=== PATIENT | male | born 1945 | race Caucasian/White ===

== ENCOUNTER 2021-01-20 17:40 | Inpatient (IN) | payer MEDICARE, OTHER ==
[2021-01-20 18:28] LABS: #Lymphocytes 1.1 thou/uL (1.20-3.40); #Monocytes 0.9 thou/uL (0.11-0.59); %Basophils 0.3 % (0.0-1.0); %Eosinophils 0.2 % (0.0-10.0); %Lymphocytes 7.6 % (21.0-51.0); %Monocytes 5.7 % (0.0-10.0); %Neutrophils 86.3 % (42.0-75.0); Hemoglobin 14.8 g/dL (14.0-18.0); Mean Corpuscular HGB CONC 34.8 g/dL (32.0-36.0); Mean Corpuscular Hemoglobin 33.3 pg (27.0-31.0); Mean Corpuscular Volume 95.8 fL (78.0-98.0); Platelet Count 219 thou/uL (130-400); RBC Distribution Width 11.5 % (11.5-14.5); Red Blood Cell (RBC) Count 4.44 mill/uL (4.70-6.10)
[2021-01-20 18:48] LABS: ALT (SGPT) 23 U/L (8-55); AST (SGOT) 26 U/L (5-34); Albumin 3.9 g/dL (3.4-4.8); Alkaline Phosphatase 64 U/L (40-110); Anion Gap 15 mmol/L (10-20); BUN (Urea Nitrogen) 23 mg/dL (8.4-25.7); Bilirubin, Total 0.9 mg/dL (0.2-1.2); Calc. Creatinine Clearance 0 mL/min (70-130); Calcium 8.9 mg/dL (7.8-10.44); Carbon Dioxide 19 mmol/L (23-31); Chloride 107 mmol/L (98-107); Globulin 3.2 g/dL (2.4-3.5); Glucose 99 mg/dL (83-110); Potassium 4.2 mmol/L (3.5-5.1); Protein, Total 7.1 g/dL (5.8-8.1); Sodium 137 mmol/L (136-145)
[2021-01-20 23:12] VITALS: BMI 29.5
[2021-01-21] MEDS: Sodium Chloride 0.9% 1,000 ML IV SCH ×2 (00:26→08:43)
[2021-01-21 04:39] LABS: SARS-CoV-2 PCR by NAA Not Detected (NotDetected)
[2021-01-21] MEDS ORDERED: Acetaminophen 325 MG TAB PO PRN (07:57)
[2021-01-21 08:58] LABS: Troponin I 0.026 ng/mL (< 0.028)
[2021-01-21] MEDS ORDERED: Aspirin 81 mg Enteric Coated Tablet PO SCH (09:00)
[2021-01-21] MEDS ORDERED: Multivit, Therapeutic 1 TAB PO SCH (09:00)
[2021-01-21] MEDS ORDERED: Lisinopril 5 MG TAB PO SCH (09:00)
[2021-01-21] MEDS ORDERED: ADENOSINE 60 MG/20 ML VIAL ONE (11:26)
[2021-01-21 16:17] VITALS: BP 156/90; TEMP 97.4
[2021-01-21] MEDS ORDERED: Atorvastatin Calcium 10 MG TAB PO SCH (21:00)
== END 2021-01-21 17:48 | disposition home or self-care (01) | DRG 641 ==
LOC: ERS 17:40 → OBSVTOIN 21:35 → UNDOADMOB 21:35 → INTOOBSV 21:35 → 2SW 21:35 → OBSVTOIN 01-21 08:05 → 2SW 01-21 08:05 → UNDODISIN 01-21 17:48
PROVIDERS: ADMIT Specialist; ATTEND Specialist
DX: E86.9 Volume depletion, unspecified (principal); I10 Essential (primary) hypertension; E78.5 Hyperlipidemia, unspecified; Z88.0 Allergy status to penicillin; Z88.2 Allergy status to sulfonamides; Z79.82 Long term (current) use of aspirin; I34.1 Nonrheumatic mitral (valve) prolapse; I51.7 Cardiomegaly; I34.0 Nonrheumatic mitral (valve) insufficiency; E86.0 Dehydration
CPT/HCPCS: 36415; 71045; 78452; 80053; 83735; 84484; 85025; 87635; 93005; 93017; 93306; 93880; A9500; G0378; J0153; U0003; U0005